=== PATIENT | female | born 1945 | race Caucasian/White ===

== ENCOUNTER 2019-10-16 13:55 | Day surgery (SDC) | payer BC ==
[2019-10-11 16:15] LABS: ALBUMIN 3.8 G/DL (3.4-5.0); ANION GAP 2 (8-16); BLOOD UREA NITROGEN 15 MG/DL (7-18); CALCIUM 9.2 MG/DL (8.5-10.1); CHLORIDE 106 MMOL/L (99-107); CREATININE 1.15 MG/DL (0.40-0.90); GLUCOSE 140 MG/DL (70-104); POTASSIUM 4.2 MMOL/L (3.5-5.1); SODIUM 142 MMOL/L (135-145); TOTAL CARBON DIOXIDE 33.8 MMOL/L (24-32); eGFR 46 ML/MIN
[2019-10-11 16:19] LABS: PARTIAL THROMBOPLASTIN TIME 28 SECONDS (22-32)
[~2019-10-16] VITALS: Ht 172.7 cm; Wt 128.3 kg
[2019-10-16] VITALS (8 sets, daily range): BP systolic 131–169; BP diastolic 53–92
[~2019-10-16 13:55] MED LIST: ASPI-1265 PO; CALCIUM MAGNES1 EAC1 PO; CARV-50 PO; CLON0.1T PO; CLOP75TA35 PO; INSU100V12 SQ; NIFE-33 PO; PRAV20TA4 PO
[2019-10-16] MEDS ORDERED: LIDOcaine/PRILOcaine 5gm cream TP ONE (14:30)
[2019-10-16] MEDS ORDERED: LORazepam 0.5 MG tablet PO PRN (14:30)
[2019-10-16] MEDS ORDERED: normal saline 1,000 ML IV SCH (14:30)
[2019-10-16] MEDS ORDERED: diphenhydrAMINE 25mg capsule PO PRN (14:30)
[2019-10-16 15:29] LABS: BASOPHILS % (AUTO) 0.2 % (0-1); EOSINOPHILS % (AUTO) 0 % (0-6); HEMATOCRIT 40.4 % (35.0-45.0); HEMOGLOBIN 13.7 g/dl (12.0-16.0); LYMPHOCYTES # (AUTO) 0.4 X10'3 (1.1-4.8); LYMPHOCYTES % (AUTO) 4.1 % (21-51); MEAN CORPUSCULAR HEMOGLOBIN 29.9 PG (27.0-31.0); MEAN CORPUSCULAR HGB CONC 33.9 g/dL (33.0-36.5); MEAN CORPUSCULAR VOLUME 88.2 FL (78-98); MEAN PLATELET VOLUME 8.6 FL (7.4-10.4); MONOCYTES # (AUTO) 0.2 X10'3 (0-0.9); MONOCYTES % (AUTO) 1.9 % (2-12); NEUTROPHILS # (AUTO) 9.9 X10'3 (1.8-7.7); NEUTROPHILS % (AUTO) 93.8 % (42-75); PLATELET COUNT 188 X10'3 (140-440); RED BLOOD COUNT 4.58 X10'6 (4.20-5.60); RED CELL DISTRIBUTION WIDTH 13.8 % (11.5-14.5); WHITE BLOOD COUNT 10.6 X10'3 (4.5-11.0)
[2019-10-16] MEDS ORDERED: NITR0.4T51 SL (15:38)
[2019-10-16] MEDS ORDERED: POTA10TA10 PO (15:38)
[2019-10-16] MEDS ORDERED: FURO-150 PO (15:38)
[2019-10-16] MEDS ORDERED: PIOG45TA5 PO (15:38)
[2019-10-16] MEDS ORDERED: ROSU20TA2 PO (15:38)
[2019-10-16] MEDS ORDERED: DOXA2TAB PO (15:38)
[2019-10-16] MEDS ORDERED: nitroGLYCERIN-Tridil 50MG/D5W 250 ML IV ONE (16:00)
[2019-10-16] MEDS ORDERED: verapamil 2.5 mg/ml inj IV ONE (16:00)
[2019-10-16] MEDS ORDERED: midazolam 2 mg/2 ml injection ONE (16:00)
[2019-10-16] MEDS ORDERED: fentaNYL/PF 50MCG/1 ML 2ML syringe ONE (16:01)
[2019-10-16] MEDS ORDERED: LIDOcaine 1% (10mg/ml)w/preservative injection 20ml MDV ONE (16:01)
[2019-10-16] MEDS ORDERED: heparin 1,000unit/ml 10ml vial 10 ML ONE (16:01)
[2019-10-16] MEDS ORDERED: iohexol 350MG/ML 100ml bottle IV ONE (16:01)
[2019-10-16] MEDS ORDERED: ondansetron/PF 4mg/2ml inj IV PRN (17:20)
[2019-10-16] MEDS ORDERED: HYDROcodone/acetaminophen 10/325mg tab PO PRN (17:20)
[2019-10-16] MEDS ORDERED: OXAZEpam 15mg capsule PO PRN (17:20)
[2019-10-16] MEDS ORDERED: acetaminophen 325mg tablet PO PRN (17:20)
[2019-10-16] MEDS ORDERED: proCHLORperazine 10 MG/2 ml inj IV PRN (17:20)
[2019-10-16] MEDS ORDERED: HYDROcodone/acetaminophen 5mg/325mg tablet PO PRN (17:20)
== END 2019-10-16 19:25 | disposition home or self-care (01) ==
LOC: SSTAY O 13:55
PROVIDERS: ATTEND Internal Medicine Interventional Cardiology
DX: I35.0 Nonrheumatic aortic (valve) stenosis (principal); I25.10 Atherosclerotic heart disease of native coronary artery without angina pectoris; G47.33 Obstructive sleep apnea (adult) (pediatric); E11.9 Type 2 diabetes mellitus without complications; E78.5 Hyperlipidemia, unspecified; I11.0 Hypertensive heart disease with heart failure; I50.9 Heart failure, unspecified; Z79.899 Other long term (current) drug therapy; Z79.82 Long term (current) use of aspirin; Z88.8 Allergy status to other drugs, medicaments and biological substances
CPT/HCPCS: 36415; 80048; 82948; 85025; 85610; 85730; 93005; 93458; 99152; 99153; C1769; C1894; J1644; J2001; J2250; J3010; J7030; Q0163; Q9967; A4620; A5120; J3490

== ENCOUNTER 2020-02-29 21:24 | Inpatient (IN) | payer BC ==
[~2020-02-29] VITALS: Ht 172.7 cm; Wt 110.0 kg
[~2020-02-29 21:24] MED LIST changes: -CALCIUM MAGNES1 EAC1 PO; -CARV-50 PO; -CLOP75TA35 PO; +DOXA2TAB PO; +FURO-150 PO; -INSU100V12 SQ; -NIFE-33 PO; +NITR0.4T51 SL; +PIOG45TA5 PO; +POTA10TA10 PO; -PRAV20TA4 PO; +ROSU20TA2 PO; +temazepam 15mg capsule PO PRN
[2020-02-29 22:08] LABS: BASOPHILS # (AUTO) 0.1 X10'3 (0-0.2); EOSINOPHILS # (AUTO) 0.4 X10'3 (0-0.9); EOSINOPHILS % (AUTO) 3.7 % (0-6); HEMATOCRIT 40.1 % (35.0-45.0); HEMOGLOBIN 13.4 g/dl (12.0-16.0); LYMPHOCYTES # (AUTO) 2.5 X10'3 (1.1-4.8); LYMPHOCYTES % (AUTO) 21.4 % (21-51); MEAN CORPUSCULAR HEMOGLOBIN 28.8 PG (27.0-31.0); MEAN CORPUSCULAR HGB CONC 33.4 g/dL (33.0-36.5); MEAN CORPUSCULAR VOLUME 86.2 FL (78-98); MEAN PLATELET VOLUME 8.2 FL (7.4-10.4); MONOCYTES # (AUTO) 0.8 X10'3 (0-0.9); MONOCYTES % (AUTO) 6.9 % (2-12); NEUTROPHILS # (AUTO) 7.7 X10'3 (1.8-7.7); PLATELET COUNT 285 X10'3 (140-440); RED BLOOD COUNT 4.64 X10'6 (4.20-5.60); RED CELL DISTRIBUTION WIDTH 15.3 % (11.5-14.5); WHITE BLOOD COUNT 11.5 X10'3 (4.5-11.0)
[2020-02-29 22:14] LABS: PARTIAL THROMBOPLASTIN TIME 24 SECONDS (22-32)
[2020-02-29] MEDS ORDERED: vancomycin inj 1,000 MG in normal saline 250ml IV soln 250 ML IV STA (22:15)
[2020-02-29] MEDS ORDERED: piperacillin/tazo 3.375gm/50ml 50 ML IV ONE (22:15)
[2020-02-29] MEDS ORDERED: vancomycin inj 1,000 MG in normal saline 250ml IV soln 250 ML IV SCH (22:25)
[2020-02-29 22:27] LABS: ALANINE AMINOTRANSFERASE 29 U/L (12-78); ALBUMIN 3.7 G/DL (3.4-5.0); ALBUMIN/GLOBULIN RATIO 0.9 (1.1-1.5); ALKALINE PHOSPHATASE 102 IU/L (46-116); ANION GAP 6 (8-16); ASPARTATE AMINO TRANSFERASE 22 U/L (10-37); BILIRUBIN,TOTAL 0.4 MG/DL (0.1-1.0); BLOOD UREA NITROGEN 22 MG/DL (7-18); BUN/CREATININE RATIO 13.8 (6.6-38.0); CALCIUM 9.2 MG/DL (8.5-10.1); CHLORIDE 100 MMOL/L (99-107); GLUCOSE 212 MG/DL (70-104); POTASSIUM 4.1 MMOL/L (3.5-5.1); SODIUM 136 MMOL/L (135-145); TOTAL CARBON DIOXIDE 30.1 MMOL/L (24-32); TOTAL PROTEIN 7.8 G/DL (6.4-8.2); eGFR 32 ML/MIN
[2020-02-29] MEDS: vancomycin inj 1,000 MG in normal saline 250ml IV soln 250 ML IV SCH (22:48)
[2020-02-29] MEDS ORDERED: LEVO50TA8 PO (23:36)
[2020-02-29] MEDS ORDERED: AMIO200T61 PO (23:36)
[2020-02-29] MEDS ORDERED: CLON0.2T PO (23:36)
[2020-02-29] MEDS ORDERED: VALS160T30 PO (23:36)
[2020-02-29] MEDS ORDERED: INSU100C10 SQ (23:40)
[2020-02-29] MEDS ORDERED: potassium Cl 20 mEq SR tablet PO PRN ×2 (23:50)
[2020-02-29] MEDS ORDERED: potassium CL 10mEq/100ml bag 100 ML IV PRN ×2 (23:50)
[2020-02-29] MEDS ORDERED: magnesium 2GM in 50ml NS 50 ML IV PRN (23:50)
[2020-02-29] MEDS ORDERED: magnesium 4gm in 100ml NS 100 ML IV PRN (23:50)
[2020-02-29] MEDS ORDERED: HYDROcodone/acetaminophen 5mg/325mg tablet PO PRN (23:50)
[2020-02-29] MEDS ORDERED: magnesium hydroxide 30ml (MOM) UD suspension PO PRN (23:50)
[2020-02-29] MEDS ORDERED: bisacodyl 10mg suppository rectal RC PRN (23:50)
[2020-02-29] MEDS ORDERED: mag hydrox/Alum hydrox/simeth 30ml oral suspension PO PRN (23:50)
[2020-02-29] MEDS ORDERED: magnesium Cl slow-release 64mg tablet PO PRN (23:50)
[2020-02-29] MEDS ORDERED: ondansetron/PF 4mg/2ml inj IV PRN (23:50)
[2020-02-29] MEDS ORDERED: acetaminophen 325mg tablet PO PRN ×2 (23:50)
[2020-03-01] MEDS: vancomycin inj 1,000 MG in normal saline 250ml IV soln 250 ML IV SCH (00:29)
[2020-03-01] MEDS: normal saline 1000ml 1,000 ML IV SCH ×4 (00:29→21:03)
[2020-03-01] MEDS ORDERED: piperacillin/tazo 3.375gm/50ml 50 ML IV SCH ×2 (00:39)
--- NOTE | 2020-03-01 01:45 | NUR ---
Received report from JENNIFER Oropeza. Pt brought to room via [facility], pt states unable to amb to bed. transferred from [facility]. oriented to room and routine, call light in reach. warm blanket given. Addendum: 03/01/20 at 0202 by Delia Vegas RN Amended: Links added.
[2020-03-01 02:02] VITALS: BP 185/62
--- NOTE | 2020-03-01 02:42 | NUR ---
PT HAS STRESS INC. PT WEARS ATTENDS, REFUSES TO KEEP OFF. Addendum: 03/01/20 at 0413 by Delia Vegas RN Amended: Links added.
[2020-03-01 05:35] LABS: BASOPHILS # (AUTO) 0.1 X10'3 (0-0.2); BASOPHILS % (AUTO) 0.8 % (0-1); EOSINOPHILS # (AUTO) 0.4 X10'3 (0-0.9); EOSINOPHILS % (AUTO) 4.6 % (0-6); HEMATOCRIT 38.6 % (35.0-45.0); HEMOGLOBIN 12.6 g/dl (12.0-16.0); LYMPHOCYTES # (AUTO) 1.8 X10'3 (1.1-4.8); LYMPHOCYTES % (AUTO) 19.8 % (21-51); MEAN CORPUSCULAR HEMOGLOBIN 28.4 PG (27.0-31.0); MEAN CORPUSCULAR HGB CONC 32.7 g/dL (33.0-36.5); MEAN CORPUSCULAR VOLUME 86.7 FL (78-98); MEAN PLATELET VOLUME 8.5 FL (7.4-10.4); MONOCYTES # (AUTO) 0.7 X10'3 (0-0.9); MONOCYTES % (AUTO) 7.5 % (2-12); NEUTROPHILS # (AUTO) 6.2 X10'3 (1.8-7.7); NEUTROPHILS % (AUTO) 67.3 % (42-75); PLATELET COUNT 262 X10'3 (140-440); RED BLOOD COUNT 4.45 X10'6 (4.20-5.60); RED CELL DISTRIBUTION WIDTH 14.8 % (11.5-14.5); WHITE BLOOD COUNT 9.3 X10'3 (4.5-11.0)
[2020-03-01 05:56] LABS: ALANINE AMINOTRANSFERASE 24 U/L (12-78); ALBUMIN 3.1 G/DL (3.4-5.0); ALBUMIN/GLOBULIN RATIO 0.9 (1.1-1.5); ALKALINE PHOSPHATASE 86 IU/L (46-116); ANION GAP 8 (8-16); ASPARTATE AMINO TRANSFERASE 18 U/L (10-37); BILIRUBIN,TOTAL 0.4 MG/DL (0.1-1.0); BLOOD UREA NITROGEN 18 MG/DL (7-18); BUN/CREATININE RATIO 12.6 (6.6-38.0); CALCIUM 8.5 MG/DL (8.5-10.1); CHLORIDE 104 MMOL/L (99-107); CREATININE 1.43 MG/DL (0.40-0.90); GLUCOSE 156 MG/DL (70-104); MAGNESIUM 1.9 MG/DL (1.5-2.4); POTASSIUM 3.7 MMOL/L (3.5-5.1); SODIUM 140 MMOL/L (135-145); TOTAL CARBON DIOXIDE 27.6 MMOL/L (24-32); TOTAL PROTEIN 6.6 G/DL (6.4-8.2); eGFR 36 ML/MIN
[2020-03-01] MEDS: piperacillin/tazo 3.375gm/50ml 50 ML IV SCH ×2 (06:10→06:52)
--- NOTE | 2020-03-01 06:36 | NUR ---
Patient in room [facility]. I have received report from Ellyn Harris and had the opportunity to ask questions and assume patient care.
--- NOTE | 2020-03-01 06:41 | NUR ---
Problems reprioritized. Patient report given, questions answered & plan of care reviewed with RN. Addendum: 03/01/20 at 0642 by Delia Vegas RN Amended: Links added.
--- NOTE | 2020-03-01 06:42 | NUR ---
Patient in room [facility]. I have received report from JENNIFER Escobedo and had the opportunity to ask questions and assume patient care.
[2020-03-01 07:16] VITALS: BP 198/84
[2020-03-01] MEDS: K and/or MAG REPLACEMENT MC SCH ×2 (08:00→20:00)
[2020-03-01] MEDS: cloNIDine 0.1 mg tablet PO SCH ×2 (08:04→20:59)
[2020-03-01] MEDS: losartan 50mg tablet PO SCH (08:04)
[2020-03-01] MEDS: amiodarone 200mg tablet PO SCH (08:04)
[2020-03-01] MEDS: potassium chloride 10mEq ER tablet PO SCH (08:04)
[2020-03-01] MEDS: levoTHYROXINE 25mcg tablet PO SCH (08:04)
[2020-03-01] MEDS: aspirin 81mg tab.chew PO SCH (08:04)
[2020-03-01] MEDS: furosemide 20MG tablet PO SCH (08:04)
[2020-03-01] MEDS: HYDROcodone/acetaminophen 10/325mg tab PO PRN (08:10)
[2020-03-01] MEDS: enoxaparin 40mg/0.4ml syringe SQ SCH (08:11)
[2020-03-01 09:37] VITALS: BP 146/60
[2020-03-01 11:00] VITALS: BP 147/66
[2020-03-01] MEDS ORDERED: VANCOMYCIN 1,500MG inj. 1,500 MG in normal saline 500ml IV soln 500 ML IV SCH (12:00)
[2020-03-01] MEDS ORDERED: VANCOmycin 1250MG/NS 250ml Bag 250 ML IV SCH (12:00)
[2020-03-01] MEDS: clindamycin 600mg/D5W 50ml 50 ML IV SCH ×2 (13:18→16:00)
[2020-03-01] MEDS: glipizide 5mg tablet PO SCH (13:18)
--- NOTE | 2020-03-01 14:04 | NUR ---
DM consult: Pt with A1c 7.2%. Attempted visit with pt at bedside however pt sleeping and did not wake with verbal cues. Written DM and protein educations with RD contact information left at patient's bedside. Will remain available. Addendum: 03/01/20 at [address] Amended: Links added.
[2020-03-01 18:00] VITALS: BP 124/56
--- NOTE | 2020-03-01 18:08 | NUR ---
Problems reprioritized. Patient report given, questions answered & plan of care reviewed with JENNIFER Diez.
[2020-03-01] MEDS: lactobacillus rhamnosus 10,000 MMU CELLS/CAPSULE PO SCH (20:59)
[2020-03-01] MEDS ORDERED: doxazosin mesylate 2mg tablet PO SCH (21:00)
[2020-03-02] VITALS: BP 113/50
[2020-03-02] MEDS: HYDROcodone/acetaminophen 10/325mg tab PO PRN (02:09)
[2020-03-02 05:14] LABS: BASOPHILS # (AUTO) 0.1 X10'3 (0-0.2); BASOPHILS % (AUTO) 1.3 % (0-1); EOSINOPHILS # (AUTO) 0.6 X10'3 (0-0.9); HEMATOCRIT 35.7 % (35.0-45.0); LYMPHOCYTES # (AUTO) 1.8 X10'3 (1.1-4.8); LYMPHOCYTES % (AUTO) 21.1 % (21-51); MEAN CORPUSCULAR HEMOGLOBIN 29.3 PG (27.0-31.0); MEAN CORPUSCULAR HGB CONC 33.5 g/dL (33.0-36.5); MEAN CORPUSCULAR VOLUME 87.3 FL (78-98); MEAN PLATELET VOLUME 8.4 FL (7.4-10.4); MONOCYTES # (AUTO) 0.6 X10'3 (0-0.9); MONOCYTES % (AUTO) 7.4 % (2-12); NEUTROPHILS # (AUTO) 5.3 X10'3 (1.8-7.7); NEUTROPHILS % (AUTO) 63.2 % (42-75); PLATELET COUNT 234 X10'3 (140-440); RED BLOOD COUNT 4.09 X10'6 (4.20-5.60); WHITE BLOOD COUNT 8.4 X10'3 (4.5-11.0)
[2020-03-02 05:36] LABS: ALANINE AMINOTRANSFERASE 21 U/L (12-78); ALBUMIN 2.7 G/DL (3.4-5.0); ALBUMIN/GLOBULIN RATIO 0.8 (1.1-1.5); ALKALINE PHOSPHATASE 74 IU/L (46-116); ANION GAP 7 (8-16); ASPARTATE AMINO TRANSFERASE 16 U/L (10-37); BILIRUBIN,TOTAL 0.3 MG/DL (0.1-1.0); BLOOD UREA NITROGEN 15 MG/DL (7-18); BUN/CREATININE RATIO 11.8 (6.6-38.0); CALCIUM 8.5 MG/DL (8.5-10.1); CHLORIDE 105 MMOL/L (99-107); CREATININE 1.27 MG/DL (0.40-0.90); GLUCOSE 121 MG/DL (70-104); MAGNESIUM 1.9 MG/DL (1.5-2.4); POTASSIUM 3.9 MMOL/L (3.5-5.1); SODIUM 139 MMOL/L (135-145); TOTAL CARBON DIOXIDE 26.6 MMOL/L (24-32); TOTAL PROTEIN 6.1 G/DL (6.4-8.2); eGFR 41 ML/MIN
--- NOTE | 2020-03-02 06:36 | NUR ---
Patient in room [facility]. I have received report from JENNIFER LOPEZ and had the opportunity to ask questions and assume patient care.
--- NOTE | 2020-03-02 06:39 | NUR ---
Problems reprioritized. Patient report given, questions answered & plan of care reviewed with SABINA RODRIGUEZ.
[2020-03-02] MEDS: normal saline 1000ml 1,000 ML IV SCH (07:48)
[2020-03-02 07:53] VITALS: BP 108/66
[2020-03-02] MEDS: K and/or MAG REPLACEMENT MC SCH (08:00)
[2020-03-02] MEDS: aspirin 81mg tab.chew PO SCH (08:00)
[2020-03-02] MEDS: levoTHYROXINE 25mcg tablet PO SCH (10:26)
[2020-03-02] MEDS: losartan 50mg tablet PO SCH (10:26)
[2020-03-02] MEDS: lactobacillus rhamnosus 10,000 MMU CELLS/CAPSULE PO SCH (10:26)
[2020-03-02] MEDS: glipizide 5mg tablet PO SCH (10:26)
[2020-03-02] MEDS: cloNIDine 0.1 mg tablet PO SCH (10:26)
[2020-03-02] MEDS: furosemide 20MG tablet PO SCH (10:26)
[2020-03-02] MEDS: potassium chloride 10mEq ER tablet PO SCH (10:26)
[2020-03-02] MEDS: amiodarone 200mg tablet PO SCH (10:26)
[2020-03-02] MEDS: enoxaparin 40mg/0.4ml syringe SQ SCH (10:31)
[2020-03-02 11:00] VITALS: BP 139/46
[2020-03-02] MEDS ORDERED: GLIP5TAB13 PO (17:12)
[2020-03-02] MEDS ORDERED: CLIN-5 PO (17:12)
--- NOTE | 2020-03-02 17:22 | NUR ---
PICTURES TAKEN YESTERDAY Addendum: 03/02/20 at 1723 by Dayana Adair RN Amended: Links added.
--- NOTE | 2020-03-02 17:51 | NUR ---
PATIENT STABLE AND APPROPRIATE FOR DISCHARGE, IV TAKEN OUT, EDUCATION GIVEN, MEDS E-SCRIPTED TO [facility] [address], ALL BELONGINGS SENT WITH PATIENT, PATIENT TAKEN TO LOBBY BY WHEELCHAIR TO AN AWAITING CAR WHERE SON WILL TAKE PATIENT HOME
[2020-03-02] MEDS ORDERED: clindamycin 600mg/D5W 50ml 50 ML IV SCH (19:40)
[2020-03-03] MEDS ORDERED: DOXY150T5 PO (11:02)
[2020-03-04] MEDS ORDERED: VANCOMYCIN LEVEL IV ONE (11:30)
== END 2020-03-02 17:53 | disposition home health service (06) | DRG 863 ==
LOC: ER 21:25 → ED HOLD 23:48 → SUR 3N 03-01 01:45
PROVIDERS: ADMIT Family Medicine; ATTEND Internal Medicine
DX: T81.41XA Infection following a procedure, superficial incisional surgical site, initial encounter (principal); L03.115 Cellulitis of right lower limb; N17.9 Acute kidney failure, unspecified; L02.415 Cutaneous abscess of right lower limb; E03.9 Hypothyroidism, unspecified; E11.22 Type 2 diabetes mellitus with diabetic chronic kidney disease; I12.9 Hypertensive chronic kidney disease with stage 1 through stage 4 chronic kidney disease, or unspecified chronic kidney disease; I25.10 Atherosclerotic heart disease of native coronary artery without angina pectoris; I48.0 Paroxysmal atrial fibrillation; B95.62 Methicillin resistant Staphylococcus aureus infection as the cause of diseases classified elsewhere; Y83.2 Surgical operation with anastomosis, bypass or graft as the cause of abnormal reaction of the patient, or of later complication, without mention of misadventure at the time of the procedure; N18.3 Chronic kidney disease, stage 3 (moderate); Z79.82 Long term (current) use of aspirin; Z79.84 Long term (current) use of oral hypoglycemic drugs; Z79.899 Other long term (current) drug therapy; Z90.710 Acquired absence of both cervix and uterus; Z95.1 Presence of aortocoronary bypass graft; Z95.2 Presence of prosthetic heart valve; Z88.8 Allergy status to other drugs, medicaments and biological substances; Z91.018 Allergy to other foods; Z90.49 Acquired absence of other specified parts of digestive tract; Y92.89 Other specified places as the place of occurrence of the external cause
CPT/HCPCS: 36415; 71045; 80053; 82948; 83036; 83605; 83735; 83880; 84145; 84443; 84484; 85025; 85610; 85730; 87040; 87070; 87077; 87081; 87186; 93005; 97110; 97116; 97161; 99285; G0378; J1650; J2543; J3370; J3490; J7030; J7050

== ENCOUNTER 2023-03-01 15:22 | Emergency (ER) | payer MEDICARE, MEDICAID ==
[~2023-03-01] VITALS: Ht 172.7 cm; Wt 134.1 kg
[~2023-03-01 15:22] MED LIST changes: +ALBU8.5H17 INH; +AMI200T PO; -ASPI-1265 PO; +ASPI81TA53 PO; -CLON0.1T PO; +CLON0.2T PO; +DOCU-22 PO; +DOXA-7 PO; -DOXA2TAB PO; -FURO-150 PO; +FURO20TA4 PO; +GLIP5TAB13 PO; +LACT1CAP26 PO; +LEVO88TA7 PO; -NITR0.4T51 SL; +NYSPWD TP; -PIOG45TA5 PO; +POTA-188 PO; -POTA10TA10 PO; -ROSU20TA2 PO; +ROSU20TA73 PO; +VALS320T17 PO; -temazepam 15mg capsule PO PRN
[2023-03-01 15:26] VITALS: BP 138/68
[2023-03-01] MEDS ORDERED: traMADol 50MG tablet PO ONE (16:15)
[2023-03-01] MEDS ORDERED: TRAM50TA2 PO (16:49)
== END 2023-03-01 17:17 | disposition home or self-care (01) ==
LOC: ER 15:23
DX: M25.561 Pain in right knee (principal); M25.562 Pain in left knee; M19.90 Unspecified osteoarthritis, unspecified site; I11.9 Hypertensive heart disease without heart failure; K21.9 Gastro-esophageal reflux disease without esophagitis; E11.9 Type 2 diabetes mellitus without complications; Z90.49 Acquired absence of other specified parts of digestive tract; Z91.018 Allergy to other foods; Z88.8 Allergy status to other drugs, medicaments and biological substances; Z88.5 Allergy status to narcotic agent; Z79.899 Other long term (current) drug therapy
CPT/HCPCS: 73560; 99283

== ENCOUNTER 2023-03-05 11:33 | Emergency (ER) | payer MEDICARE, MEDICAID ==
[~2023-03-05] VITALS: Ht 172.7 cm; Wt 134.6 kg
[~2023-03-05 11:33] MED LIST changes: +TRAM50TA2 PO
[2023-03-05 11:37] VITALS: BP 156/101
[2023-03-05] MEDS ORDERED: HYDR-3973 PO (13:04)
[2023-03-05] MEDS ORDERED: HYDROcodone/acetaminophen 10/325mg tab PO ONE (13:20)
== END 2023-03-05 14:19 | disposition home or self-care (01) ==
LOC: ER 11:34
DX: M17.0 Bilateral primary osteoarthritis of knee (principal); I10 Essential (primary) hypertension; K59.00 Constipation, unspecified; K21.9 Gastro-esophageal reflux disease without esophagitis; E11.9 Type 2 diabetes mellitus without complications; Z91.013 Allergy to seafood; Z88.8 Allergy status to other drugs, medicaments and biological substances; Z91.041 Radiographic dye allergy status; Z91.018 Allergy to other foods; Z98.890 Other specified postprocedural states; Z90.49 Acquired absence of other specified parts of digestive tract; Z90.710 Acquired absence of both cervix and uterus
CPT/HCPCS: 99283